=== PATIENT | female | born 1965 | race Caucasian/White ===

== ENCOUNTER → 2020-09-18 14:57 | Outpatient (BNVA) | payer BC, SELFPAY | PROVIDERS: Family Provider Internal Medicine; PCP Family Medicine; Referring Provider Family Medicine; Visit Provider Nurse Practitioner Family | DX: N39.0 Urinary tract infection, site not specified (principal) | CPT/HCPCS: 81003; 87086 ==

== ENCOUNTER → 2020-11-01 15:33 | Outpatient (BNVA) | payer BC, SELFPAY | PROVIDERS: Family Provider Internal Medicine; PCP Family Medicine; Visit Provider Urology | DX: N30.20 Other chronic cystitis without hematuria (principal) | CPT/HCPCS: 81003 ==

== ENCOUNTER → 2021-01-03 17:03 | Outpatient (BNVA) | payer BC, SELFPAY | PROVIDERS: Family Provider Internal Medicine; PCP Family Medicine; Visit Provider Urology | DX: N30.20 Other chronic cystitis without hematuria (principal) | CPT/HCPCS: 81003; 87086 ==

== ENCOUNTER → 2021-04-04 16:16 | Outpatient (BNVA) | payer BC, SELFPAY | PROVIDERS: Family Provider Internal Medicine; PCP Family Medicine; Visit Provider Nurse Practitioner Family | DX: N30.20 Other chronic cystitis without hematuria (principal) | CPT/HCPCS: 81003 ==

== ENCOUNTER → 2021-10-09 14:49 | Outpatient (BNVA) | payer BC, SELFPAY | PROVIDERS: Family Provider Internal Medicine; PCP Family Medicine; Visit Provider Urology | DX: N30.20 Other chronic cystitis without hematuria (principal) | CPT/HCPCS: 81003 ==

== ENCOUNTER 2022-03-08 12:40 | Outpatient (CLI) | payer BC, SELFPAY ==
--- NOTE | 2022-03-08 12:56 | XRR_ITS ---
PROCEDURE INFORMATION: Exam: XR Cervical Spine Exam date and time: 03/08/2022 1:04 PM Age: 56 years old Clinical indication: Pain; Cervicalgia; Patient HX: PT states that on lt side of c -spine just below the shoulder area and on the low back just to the left of the spine is a couple of knots/lumps PT also experiences numbness in left fingers; Additional info: Cervical pain/cervicalgia TECHNIQUE: Imaging protocol: XR of the cervical spine. Views: 4 or 5 views. COMPARISON: No relevant prior studies available. FINDINGS: Bones/joints: Normal. No acute fracture. Normal alignment. Soft tissues: Unremarkable. XR/XR cervical spine 4-5V [id number] IMPRESSION: No acute findings. If there is desire for further evaluation, a MRI could be performed.
--- NOTE | 2022-03-08 12:56 | XRR_ITS ---
PROCEDURE INFORMATION: Exam: XR Lumbosacral Spine Exam date and time: 03/08/2022 1:04 PM Age: 56 years old Clinical indication: Low back pain; Patient HX: PT states that on lt side of c -spine just below the shoulder area and on the low back just to the left of the spine is a couple of knots/lumps PT also experiences numbness in left fingers; Additional info: Lumbar pain/lumbar spondylosis TECHNIQUE: Imaging protocol: XR of the lumbosacral spine. Views: 4 or 5 views. COMPARISON: No relevant prior studies available. FINDINGS: Bones/joints: There is no evidence for acute fracture or malalignment. The disc spaces are well preserved. Soft tissues: Unremarkable. XR/XR lumbar spine min 4V [id number] IMPRESSION: There are no acute concerning abnormalities. If there is desire for further evaluation, a MRI could be performed.
== END 2022-03-08 12:41 | disposition home or self-care (01) ==
PROVIDERS: Family Provider Internal Medicine; PCP Family Medicine; Visit Provider Nurse Practitioner Family
DX: M47.816 Spondylosis without myelopathy or radiculopathy, lumbar region (principal); M54.50 Low back pain, unspecified; M54.2 Cervicalgia; M54.6 Pain in thoracic spine
CPT/HCPCS: 72050; 72110

== ENCOUNTER 2022-04-11 13:40 | Outpatient (CLI) | payer OTHER, SELFPAY ==
--- NOTE | 2022-04-11 13:52 | MM_ITS ---
WS: [id number] BILATERAL 3D TOMOSYNTHESIS DIGITAL SCREENING MAMMOGRAPHY WITH CAD CLINICAL INFORMATION: SCREENING HISTORY: Screening mammogram. No current complaints. COMPARISON: April 30, 2017 TECHNIQUE: Bilateral CC and MLO views. FINDINGS: Scattered fibroglandular densities bilaterally. Vascular calcification. A few incidental punctate naeem cifications. 7 mm slightly spiculated asymmetric density along the posterior nipple line. 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 RECOMMEND FURTHER EVALUATION WITH LEFT BREAST DIAGNOSTIC MAMMOGRAPHY AND UL TRASOUND. RIGHT breast is unremarkable. MM/[place] [id number] IMPRESSION: BI-RADS: 0-Incomplete: Need additional imaging evaluation FOLLOW UP: Need Additional Imaging
== END 2022-04-11 13:41 | disposition home or self-care (01) ==
LOC: RAD 13:42
PROVIDERS: PCP Nurse Practitioner Family; Visit Provider Nurse Practitioner Family
DX: Z12.31 Encounter for screening mammogram for malignant neoplasm of breast (principal)
CPT/HCPCS: 77063; 77067

== ENCOUNTER 2022-04-24 07:49 | Outpatient (CLI) | payer OTHER, SELFPAY ==
--- NOTE | 2022-04-24 08:04 | US_ITS ---
WS: [id number] ULTRASOUND SOFT TISSUES posterior thorax. HISTORY: LOCALIZED SWELLING, MASS, LUMP, TRUNK COMPARISON: None available. TECHNIQUE: 2-D and color Doppler imaging is submitted. Patient directed cycling instructor to the upper posterior thorax. No definite abnormality is identified. Jose metzger also directed the cycling instructor to the midline of the lower back. There is a nearly isoechoic nod ule measuring 2.4 x 1.7 cm which is probably a lipoma. There is no increased vascularity. US/US soft tissue/extremity [id number] IMPRESSION: 1. Isoechoic mass measures 2.4 x 1.7 cm in the midline of the lower thorax. Ve ry nonspecific with no increased vascularity. Favor lipoma. 2. No definite abnormality is noted in the patient directed area over the uppe r posterior thorax. .
== END 2022-04-24 07:50 | disposition home or self-care (01) ==
PROVIDERS: PCP Nurse Practitioner Family; Visit Provider Nurse Practitioner Family
DX: R22.2 Localized swelling, mass and lump, trunk (principal)
CPT/HCPCS: 76882

== ENCOUNTER 2022-05-28 14:42 | Outpatient (CLI) | payer BC, SELFPAY ==
--- NOTE | 2022-05-28 14:47 | MM_ITS ---
WS: [id number] LEFT 3D TOMOSYNTHESIS DIGITAL MAMMOGRAPHY WITH CAD CLINICAL INFORMATION: ABNORMAL MAMMO COMPARISON: April 11, 2022 TECHNIQUE: 3 views of the left breast were obtained. FINDINGS: Scattered fibroglandular densities of the left breast. Again seen is the 7 mm slightly spiculated asy mmetric density along the posterior nipple line. This partially compresses out on the spot compressio n views today. Ultrasound described below. ULTRASOUND BREAST LEFT TECHNIQUE: Ultrasound left breast focused area of concern. CLINICAL INFORMATION: ABNORMAL MAMMO FINDINGS: Ultrasound LEFT breast at the 3:00 position. At the 3:00 position, 1 cm from the nipple is a tiny cys t measuring 5 x 2 x 4 mm. Associated incidental ductal ectasia 3:00 position near the areola. No susp icious cystic or solid lesions to target for biopsy. Recommend return to annual screening mammography . MM/[place] [id number] IMPRESSION: BI-RADS: 2-Benign FOLLOW UP: 1 Year Follow-up Recommend return to annual screening mammography.
== END 2022-05-28 14:43 | disposition home or self-care (01) ==
LOC: RAD 14:43
PROVIDERS: PCP Nurse Practitioner Family; Visit Provider Nurse Practitioner Family
DX: R92.8 Other abnormal and inconclusive findings on diagnostic imaging of breast (principal)
CPT/HCPCS: 76642; 77061